=== PATIENT | male | born 1965 | race Hispanic/Latino ===

== ENCOUNTER → 2022-02-04 | Outpatient (CLI) | payer BC ==
[~2022-02-04] MED LIST: AEC81 PO; ATOR40TA71 PO; CLOP75TA14 PO; FURO20TA4 PO; METO25TA6 PO; [UNRECOGNIZED DRUG - CODE] PO
== END | disposition home or self-care (01) ==
LOC: SHCH 07:58
PROVIDERS: ATTEND Internal Medicine Cardiovascular Disease
DX: R60.9 Edema, unspecified (principal)
CPT/HCPCS: 93970